=== PATIENT | male | born 1945 | race Caucasian/White ===

== ENCOUNTER 2022-01-31 10:30 | Observation (INO) | payer MEDICARE, SELFPAY ==
[2022-01-31] VITALS (14 sets, daily range): BP systolic 118–168; BP diastolic 70–104; PULSE 68–96; RESP 13–21; TEMP 36.2–36.8; O2SAT 96–100; BMI 25.5
--- NOTE | ~2022-01-31 | XR_ITS ---
EXAMINATION: XR knee LT 3V DATE: 01/31/2022 11:15 INDICATION: Left knee pain and bruising post fall TECHNIQUE: Anteroposterior, 2 oblique and crosstable lateral views of the left knee were obtained COMPARISON: None. FINDINGS: Alignment is normal. No fracture. There is mild to moderate joint space narrowing at the lateral asp ect of the patellofemoral compartment with small patellar marginal osteophytes medial and lateral chapin nt spaces appear normal on nonweightbearing imaging. No joint effusion/layering lipohemarthrosis. Ath erosclerotic calcifications along the popliteal artery. IMPRESSION: 1. 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 No acute osseous abnormality. Reviewed, dictated and finalized at location A. IMPRESSION: 1. 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 No acute osseous abnormality .
--- NOTE | ~2022-01-31 | XR_ITS ---
EXAMINATION: XR shoulder LT min 2V DATE: 01/31/2022 11:15 INDICATION: Left shoulder pain and swelling post fall TECHNIQUE: AP internally and externally rotated, AP oblique externally rotated and transscapular Y vi ews of the left shoulder were obtained. COMPARISON: None FINDINGS: Comminuted fractures of the proximal left humerus. This includes an oblique fracture line at the surg ical neck with approximately 45 degree posterior angulation. There is an additional fracture fragment comprising the posterior inferior margin of the greater tuberosity, potentially including the footpl ate of the teres minor tendon which is approximately 8 mm posterior displacement and mild varus angul ation relative to the humeral head fragment. The humeral head remains normally centered over the jovanna oid with normal joint space. Borderline widening of the right acromioclavicular joint which measures approximately 8 mm in width and without craniocaudal subluxation which could represent an age-indeter minate grade 1 or 2 acromioclavicular joint separation. A couple small calcified nodules in the left lung consistent with old granulomatous disease. Heart size is normal. Soft tissue swelling about the shoulder. IMPRESSION: 1. Comminuted two-part fracture of the proximal left humerus. 2. Borderline widening of the left acromioclavicular joint which could represent an age-indeterminate low grade acromioclavicular joint separation. Reviewed, dictated and finalized at location A. IMPRESSION: 1. Comminuted two-part fracture of the proximal left humerus. 2. Borderline widening of the left acromioclavicular joint which could represen t an age-indeterminate low grade acromioclavicular joint separation.
--- NOTE | 2022-01-31 10:40 | ECG_ITS ---
Measurements Intervals [place] Rate: 78 P: 62 AK: 126 QRS: 19 QRSD: 93 T: 19 QT: 403 QTc: 461 Interpretive Statements SINUS RHYTHM BASELINE ARTIFACT- II, III, AVR, AVF, V1-V3 NORMAL ECG Electronically Signed On 01-31-2022 12:30:11 CDT by Julián Smith D.O.
[2022-01-31 10:51] LABS: Basophils Percent Auto 0.3 % (0.2-1.2); Hematocrit 36.7 % (42.0-52.0); Hemoglobin 12.1 g/dL (14.0-18.0); Immature Granulocyte Absolute 0.05 K/mm3 (0.00-0.031); Immature Granulocyte Percent A 0.4 % (0-0.5); Lymphocytes Percent Auto 4.3 % (18.3-44.2); Mean Corpuscular Hemoglobin 35.9 pg (26-34); Mean Corpuscular Volume 108.9 fl (80-100); Mean Platelet Volume 10.3 fl (7.4-10.4); Monocytes Absolute Auto 0.8 K/mm3 (0.1-0.6); Monocytes Percent Auto 6.6 % (2.6-8.5); Neutrophils Absolute Auto 10.2 K/mm3 (1.3-6.7); Neutrophils Percent Auto 88.4 % (45.5-73.1); Platelet Count Result 191 k/mm3 (150-375); Red Blood Count 3.37 M/mm3 (4.6-6.20); Red Cell Distribution Width 11.9 % (11.5-14.5); White Blood Count 11.5 K/mm3 (4.5-10.0)
--- NOTE | 2022-01-31 10:56 | PC.NURSE ---
Pt to XRAY via stretcher at this time.
[2022-01-31 11:01] LABS: Alanine Aminotransferase 19 U/L (4-50); Alkaline Phosphatase 88 U/L (38-126); Anion Gap 9 mmol/L (8-16); Aspartate Amino Transferase 39 U/L (17-59); Bilirubin,Total 0.9 mg/dL (0.2-1.3); Blood Urea Nitrogen 22 mg/dL (9-20); Calcium 8.6 mg/dL (8.4-10.2); Carbon Dioxide 23 mmol/L (22-30); Chloride 104 mmol/L (98-107); Estimated CRCL calculation 71 ml/min; Estimated Glomerular Filt Rate > 60; Glucose 107 mg/dL (65-110); Potassium 4.6 mmol/L (3.4-5.0); Sodium 136 mmol/L (137-145)
[2022-01-31 12:43] LABS: SARS-CoV-2 RNA PCR Negative
--- NOTE | 2022-01-31 12:44 | ED.UPPEXIN ---
HPI - Extremity Injury (Upper) General Chief Complaint: Extremity Injury, Upper Stated Complaint: GLF, SPENT ALL NIGHT ON THE FLOOR Time Seen by Provider: 01/31/22 10:57 Source: patient and family Mode of arrival: EMS Limitations: no limitations History of Present Illness HPI narrative: Pt lost balance and fell last night and landed on left shoulder and knee. Pt says he did not pass out just thinks he lost his balance. Pt was not able to get up and laid on the floor for 8-9 hours before he was discovered by family. MD complaint: injury to: left and shoulder Other Extremity Injury: Left: shoulder Other injuries: LLE (knee) Place: home Relieving factors: immobilization Exacerbating factors: movement of extremity Context: fall Associated symptoms: denies other symptoms Related Data Home Medications Medication Instructions Recorded Confirmed aspirin 81 mg tablet,delayed 81 mg PO DAILY 11/16/21 11/21/21 release indapamide 2.5 mg tablet 2.5 mg PO DAILY 11/16/21 11/21/21 metoprolol succinate 50 mg 50 mg PO DAILY 11/16/21 11/21/21 tablet,extended release 24 hr minocycline 50 mg capsule 50 mg PO BID 11/16/21 11/21/21 simvastatin 20 mg tablet 20 mg PO DAILY 11/16/21 11/21/21 enalapril maleate 20 mg tablet 40 mg PO DAILY tablet 11/21/21 11/21/21 glucosamine-chondroitin 167 mg-133 cap PO .QD cap 11/21/21 11/21/21 mg capsule Allergies Allergy/AdvReac Type Severity Reaction Status Date / Time No Known Allergies Allergy Verified 01/31/22 10:39 Review of Systems Review of Systems: All systems reviewed & are unremarkable except as noted in HPI and below PMFSH Past Medical History Medical History Hx of malignant neoplasm of prostate 2016 Surgical History Surgical History Hx of appendectomy Hx of cataract extraction bilateral 2016 Hx of cholecystectomy Hx of hand surgery Family History Family History Father Cancer Mother Cerebrovascular accident Other Hypertension Malignant neoplasm of prostate Social History Social History Smoking status: Former smoker Second hand tobacco smoke exposure: No Smoking end date: 09/29/89 Alcohol intake: current Drinks per week: 6 Substance use: never Substance use type: does not use Gender identity (if verbalized by the patient): Male Sexual Orientation (if Verbalized by the Patient): Straight or Heterosexual Spiritual care concerns: No Agree to blood products: Yes Exam Const: General: no acute distress Orientation/consciousness: patient oriented x3 HENMT: Head: normal to inspection Eyes: Conjunctivae: conjunctivae normal Pupils: Equal, round and reactive pupils present Neck: Neck: normal visual inspection and no lymphadenopathy Chest: Chest palpation & inspection: normal inspection of the chest Resp: Effort & Inspection: normal respiratory effort Auscultation: clear to auscultation bilaterally Cardio: Rate: regular rate Rhythm: regular rhythm GI: GI Palp: Yes Soft to palpation Auscultation: normal bowel sounds Skin: Other: abrasion left knee, bruising left shoulder and arm Neuro: General: patient oriented x3, no meningeal signs and no focal motor deficits Extrem: Other: tender swollen proximal humerus with swelling Psych: Appearance: grossly normal Mental Status: mental status grossly normal Thought content: Yes Normal thought content present Course Course Emergency Course: d/w justin florez's coding assistant said ok to sling and can follow up Vital Signs Vital signs: Vital Signs Temperature 98.0 F 01/31/22 10:27 Pulse Rate 80 01/31/22 10:27 Respiratory Rate 20 01/31/22 10:27 Blood Pressure 168/94 H 01/31/22 10:27 Pulse Oximetry 100 01/31/22 10:27 Temperature
[2022-01-31 13:04] LABS: Mucus Urine Moderate /lpf; RBC Urine 0-2 /hpf (0-2); WBC Urine 0-3 /hpf
[2022-01-31 13:07] LABS: Add Urine Microscopic? YES; Appearance Urine Clear (Clear); Bilirubin Urine 1+ (Negative); Blood Urine Negative (Negative); Color Urine Amber (Yellow); Glucose Urine UA Negative (Negative); Ketones Urine 2+ mg/dL (Negative); Leukocyte Esterase Ur Negative LEU/UL (Negative); Nitrate Urine Negative (Negative); Protein Urine Trace mg/dL (Negative); Specific Grav Ur >= 1.030 (1.001-1.035); Urobilinogen Urine 0.2 mg/dL (<2.0); pH Urine 5.5 (5.0-9.0)
[2022-01-31 13:17] LABS: Creatine Kinase 171 U/L (55-170)
--- NOTE | 2022-01-31 17:42 | ADMGEN ---
This patient, Jorge Benedict, was admitted to Medical Room 258-01. Patient/family oriented to hospital policies and general routines including ID bracelet, bed and alarms, visiting hours, pain management, procedures, bathroom and other care routines, personal items, smoking policy, room service/diet, and visiting hours. Information on how to activate the Rapid Response Team has been discussed. Patient/Family are encouraged to report perceived risks to care and to ask questions if they do not understand what they are told or what they should do.
--- NOTE | 2022-01-31 20:24 | PM.IMHP ---
H&P: HPI History of Present Illness Date/Time: 01/31/22 20:24 Chief Complaint: Fall. Narrative: This is a 76-year-old male with past medical history significant for tobacco dependence, hypertension, dyslipidemia, degenerative joint disease. Patient had a fall overnight he will a on the floor for several hours after family member found him he was unable to get up on his own. Patient is complaining of left shoulder pain swelling and hematoma. Patient has been in his usual state of health he denies any loss of consciousness, no vision changes, no dizziness, no weakness, no chest pain, no shortness of breath, no nausea, no vomiting, no abdominal pain. Preliminary workup was significant for comminuted proximal fracture of the left humerus. Patient is been admitted for further evaluation, management and treatment. Review of Systems Review of Systems: Fall, left shoulder pain, left arm hematoma. Constitutional: Constitutional: Denies chills, Denies fever(s), Denies malaise, Denies night sweats, Denies poor appetite and Reports weakness Eyes: Eyes: Denies change in vision ENT: Denies dysphagia, Denies vertigo, Denies dizziness, Denies nasal congestion, Denies nasal discharge, Denies nasal obstruction and Denies odynophagia Cardiovascular: Cardiovascular: Denies pedal edema, Denies edema, Denies irregular heart rhythm, Denies leg edema, Denies lightheadedness, Denies radiating jaw, neck or arm pain, Denies palpitations, Denies dyspnea on exertion and Denies orthopnea Respiratory: Respiratory: Denies cough Gastrointestinal: Gastrointestinal: Denies abdominal pain, Denies dyspepsia, Denies heartburn, Denies nausea and Denies vomiting Genitourinary: Genitourinary: Denies dysuria Musculoskeletal: Musculoskeletal: Reports arthralgias, Reports joint swelling and Reports limited range of motion Comments: Left shoulder Integumentary/Breasts: Skin/Breast: Denies rash Comments: Left hematoma Neurologic: Denies focal weakness and Denies Sensory deficit (Neuro) Psychiatric: Psychiatric: Reports no additional psychiatric complaints and Reports as per HPI Endocrine: Endocrine: Denies cold intolerance, Denies fatigue, Denies flushing, Denies heat intolerance, Denies polyphagia, Denies polydipsia, Denies polyuria and Denies palpitations Hematologic/Lymphatic: Hematologic/Lymphatic: Reports no additional hematologic/lymphatic complaints and Reports as per HPI Allergic/Immunologic: Allergic/Immunologic: Reports no additional allergic/immunologic complaints and Reports as per HPI PMFSH Past Medical History Medical History Hx of malignant neoplasm of prostate 2016 Surgical History Surgical History Hx of appendectomy Hx of cataract extraction bilateral 2016 Hx of cholecystectomy Hx of hand surgery Family History Family History Father Cancer Mother Cerebrovascular accident Other Hypertension Malignant neoplasm of prostate Social History Social History Smoking status: Former smoker Tobacco type: pipe Second hand tobacco smoke exposure: Yes Smoking end date: 09/29/89 Alcohol intake: current Drinks per week: 14 Substance use: never Substance use type: does not use Gender identity (if verbalized by the patient): Male Sexual Orientation (if Verbalized by the Patient): Straight or Heterosexual Spiritual care concerns: No Agree to blood products: Yes Meds Home Medications and Allergies Home Medications Medication Instructions Recorded Confirmed Type aspirin 81 mg tablet,delayed 81 mg PO DAILY 11/16/21 01/31/22 History release indapamide 2.5 mg tablet 2.5 mg PO DAILY 11/16/21 01/31/22 History metoprolol succinate 50 mg 50 mg PO DAILY 11/16/21 01/31/22 History tablet,exte
[2022-02-01] VITALS (7 sets, daily range): BP systolic 128–156; BP diastolic 70–94; PULSE 75–100; RESP 16–18; TEMP 36.2–36.9; O2SAT 100
--- NOTE | 2022-02-01 07:42 | PCOTNOTE ---
Will need ortho consult and WB status prior to completion of OT evaluation.
[2022-02-01] MEDS: ASPIRIN 81 MG ENTERIC TABLET PO (08:33)
[2022-02-01] MEDS: SIMVASTATIN 20 MG TABLET PO (08:33)
[2022-02-01] MEDS: INDAPAMIDE 2.5 MG TABLET PO (08:33)
[2022-02-01] MEDS: METOPROLOL SUCCINATE EXT REL 50 MG TABCR PO (08:34)
[2022-02-01] MEDS: ENALAPRIL MALEATE 10 MG TABLET 40 MG PO (08:34)
[2022-02-01 08:57] LABS: Basophils Percent Auto 0.3 % (0.2-1.2); Eosinophils Percent Auto 0.4 % (0-4.4); Hematocrit 32.2 % (42.0-52.0); Hemoglobin 10.5 g/dL (14.0-18.0); Immature Granulocyte Absolute 0.03 K/mm3 (0.00-0.031); Immature Granulocyte Percent A 0.4 % (0-0.5); Lymphocytes Absolute Auto 0.72 K/mm3 (0.9-3.2); Lymphocytes Percent Auto 9.3 % (18.3-44.2); Mean Corpuscular HGB Conc 32.6 g/dl (32-36); Mean Corpuscular Hemoglobin 36.2 pg (26-34); Mean Platelet Volume 10.7 fl (7.4-10.4); Monocytes Absolute Auto 0.6 K/mm3 (0.1-0.6); Monocytes Percent Auto 8.1 % (2.6-8.5); Neutrophils Absolute Auto 6.3 K/mm3 (1.3-6.7); Neutrophils Percent Auto 81.5 % (45.5-73.1); Platelet Count Result 159 k/mm3 (150-375); Red Cell Distribution Width 11.8 % (11.5-14.5); White Blood Count 7.7 K/mm3 (4.5-10.0)
[2022-02-01 09:11] LABS: Alanine Aminotransferase 16 U/L (4-50); Albumin Level 3.3 g/dL (3.5-5.1); Alkaline Phosphatase 65 U/L (38-126); Anion Gap 5 mmol/L (8-16); Aspartate Amino Transferase 29 U/L (17-59); Blood Urea Nitrogen 24 mg/dL (9-20); Calcium 8.3 mg/dL (8.4-10.2); Carbon Dioxide 28 mmol/L (22-30); Chloride 101 mmol/L (98-107); Creatine Kinase 88 U/L (55-170); Estimated CRCL calculation 71 ml/min; Estimated Glomerular Filt Rate > 60; Glucose 106 mg/dL (65-110); Magnesium 1.6 mg/dL (1.6-2.3); Potassium 3.9 mmol/L (3.4-5.0); Sodium 134 mmol/L (137-145)
--- NOTE | 2022-02-01 11:16 | PM.CNOR ---
Assessment and Plan Assessment and plan (1) Fracture of proximal end of humerus: Qualifiers: Encounter type: initial encounter Fracture morphology: other fracture Fracture type: closed Laterality: left Fracture alignment: displaced Qualified Code(s): S42.292A - Other displaced fracture of upper end of left humerus, initial encounter for closed fracture Code(s): S42.209A - Unspecified fracture of upper end of unspecified humerus, initial encounter for closed fracture Status: Acute Assessment and Plan: pleasant 76-year-old gentleman who lives alone with ground level mechanical fall at home. Left proximal humerus fracture. New patient evaluation for chief complaint Left shoulder fracture. History, physical exam and radiographs reviewed with the patient. Discussed the condition, nature, etiology and course of natural history with the patient. Treatment options including surgical and nonoperative treatment were reviewed. Risks and benefits of each as well as alternatives reviewed. The patient's questions were answered. Conservative treatment ice, sling, Pain control. recommend PT/ OT to assist with transfers, ambulation and ADLs. Okay from orthopedic standpoint to be discharged and follow up in clinic due to excessive bruising and swelling at this time, surgery unable to be performed until improved. History of Present Illness HPI Consult date: 02/01/22 Requesting physician: Gabriele Hawthorne MD Consult reason: fracture ( Left shoulder) Chief complaint: Gait Instability/Generalized Weakness/Proximal Hum Narrative: 76-year-old gentleman lives alone at home. Lost his balance and fell 2 nights ago. Was unable to get up and had to stay on the floor for approximately 8 hours until family is able to bring to the emergency room denies loss of consciousness. Denies head neck or back injury. Complains of left shoulder pain. Review of Systems Review of Systems: Fall, left shoulder pain, left arm hematoma. Constitutional: Constitutional: Denies chills, Denies fever(s), Denies malaise, Denies night sweats, Denies poor appetite and Reports weakness Eyes: Eyes: Denies change in vision ENT: Denies dysphagia, Denies vertigo, Denies dizziness, Denies nasal congestion, Denies nasal discharge, Denies nasal obstruction and Denies odynophagia Cardiovascular: Cardiovascular: Denies pedal edema, Denies edema, Denies irregular heart rhythm, Denies leg edema, Denies lightheadedness, Denies radiating jaw, neck or arm pain, Denies palpitations, Denies dyspnea on exertion and Denies orthopnea Respiratory: Respiratory: Denies cough Gastrointestinal: Gastrointestinal: Denies abdominal pain, Denies dyspepsia, Denies heartburn, Denies nausea and Denies vomiting Genitourinary: Genitourinary: Denies dysuria Musculoskeletal: Musculoskeletal: Reports arthralgias, Reports joint swelling and Reports limited range of motion Comments: Left shoulder Integumentary/Breasts: Skin/Breast: Denies rash Comments: Left hematoma Neurologic: Denies focal weakness and Denies Sensory deficit (Neuro) Psychiatric: Psychiatric: Reports no additional psychiatric complaints and Reports as per HPI Endocrine: Endocrine: Denies cold intolerance, Denies fatigue, Denies flushing, Denies heat intolerance, Denies polyphagia, Denies polydipsia, Denies polyuria and Denies palpitations Hematologic/Lymphatic: Hematologic/Lymphatic: Reports no additional hematologic/lymphatic complaints and Reports as per HPI Allergic/Immunologic: Allergic/Immunologic: Reports no additional allergic/immunologic complaints and Reports as per HPI PMFSH Past Medical History Medical History Hx of malignant neoplasm of prostate 2016 Surgical History Surgical History Hx of appendectomy Hx of cataract extraction bilateral 2016 Hx of cholecystectomy Hx of hand adriana
--- NOTE | 2022-02-01 11:30 | PM.DS ---
DS: Admitting Diagnosis Discharge Date 02/01/22 1130 Admitting Diagnosis Left humerus fracture DS: Discharge Diagnosis Discharge Diagnosis (1) Gait instability: Code(s): R26.81 - Unsteadiness on feet Status: Acute Assessment and Plan: Up with assistance PT OT consult (2) Fracture of proximal end of humerus: Qualifiers: Encounter type: initial encounter Fracture alignment: displaced Fracture morphology: other fracture Fracture type: closed Laterality: left Qualified Code(s): S42.292A - Other displaced fracture of upper end of left humerus, initial encounter for closed fracture Code(s): S42.209A - Unspecified fracture of upper end of unspecified humerus, initial encounter for closed fracture Status: Acute Assessment and Plan: [facility] Supportive [facility] with PT OT Shoulder x-ray:Comminuted two-part fracture of the proximal left humerus. Borderline widening of the left acromioclavicular joint which could represent an age-indeterminate low grade acromioclavicular joint separation. (3) Rosacea, unspecified: Code(s): L71.9 - Rosacea, unspecified Status: Acute Assessment and Plan: Follow-up in outpatient setting (4) Pure hypercholesterolemia, unspecified: Code(s): E78.00 - Pure hypercholesterolemia, unspecified Status: Acute Assessment and Plan: Continue statin (5) Essential (primary) hypertension: Code(s): I10 - Essential (primary) hypertension Status: Acute Assessment and Plan: Continue home meds Continue to monitor Pressure is slightly elevated however patient has a fractured probably related to pain DS: Summary Hospital Course Hospital Course: Patient is a 76-year-old male with a past medical history of tobacco dependence, hypertension, dyslipidemia, degenerative joint disease who fell. Shoulder x-ray showed a fracture of the humerus. Ortho was consulted and patient is going to need outpatient follow-up. PT and OT has been arranged with home health. Patient is feeling pretty good is stable for discharge at this time. He denies any chest pain, shortness of breath, nausea, vomiting, diarrhea, constipation, weakness or fatigue. Status at Discharge Functional status at discharge: independent ambulation Overall status at discharge: patient is progressing back to baseline Time Spent with Patient Time attestation: Total time spent providing and/or coordinating discharge services: 43 minutes Time spent: Greater than 30 minutes Specific discharge activities: Diagnostic testing, chart review, developing a treatment plan, education, care coordination documentation, physical exam, result review Exam Const: General: cooperative, comfortable, no acute distress, well developed, alert, awake and other (Well-appearing) Nutritional Appearance: average body habitus Orientation/consciousness: patient oriented x3 HENMT: Head: normal to inspection, normocephalic and atraumatic Ears: hearing grossly normal bilaterally General nose exam: Other nasal findings present Face and sinus: normal facial exam Mouth: Yes Normal oral and palatal mucosa present Eyes: General: appearance normal, both eyes and all related structures Alignment and Position: alignment normal Sclera: sclerae normal Pupils: Equal, round and reactive pupils present EOM: EOMs intact bilaterally Neck: Neck: normal visual inspection, full ROM, no lymphadenopathy, supple and no JVD Thyroid: thyroid normal Lymphatic: no lymphadenopathy noted Resp: Effort & Inspection: normal respiratory effort and able to speak in complete sentences Auscultation: clear to auscultation bilaterally, no crackles, no rales, no rhonchi and no wheezes Cardio: Jugular venous distension: no JVD Rate: regular rate Rhythm: regular rhythm Heart sounds: S1 normal heart sound present and S2 normal heart sound present GI: Inspection: normal to inspection : General: Yes deferred
--- NOTE | 2022-02-01 11:42 | PCPTNOTE ---
Unable to see pt this morning due just received lunch tray.
== END 2022-02-01 16:58 | disposition home health service (06) ==
LOC: ANHED 15:19 → ANH2MED 02-01 09:18
PROVIDERS: Admitting Provider Internal Medicine; Emergency Provider Emergency Medicine; PCP Family Medicine Adolescent Medicine; Visit Provider Nurse Practitioner
DX: S42.292A Other displaced fracture of upper end of left humerus, initial encounter for closed fracture (principal); W19.XXXA Unspecified fall, initial encounter; Z87.891 Personal history of nicotine dependence; R26.81 Unsteadiness on feet; L71.9 Rosacea, unspecified; E78.00 Pure hypercholesterolemia, unspecified; I10 Essential (primary) hypertension; Z85.46 Personal history of malignant neoplasm of prostate; Z20.822 Contact with and (suspected) exposure to COVID-19
CPT/HCPCS: 36415; 73030; 73562; 80053; 81001; 82550; 83735; 85025; 93005; 97162; 97165; 99285; A9270; C9803; G0378; U0003; U0005